=== PATIENT | male | born 1935 | race Caucasian/White ===

== ENCOUNTER 2024-06-03 14:57 | Inpatient (IN) | payer OTHER, BC ==
--- OUTSIDE RECORDS SUMMARY | 2024-06-03 14:59 | XMS REPORT | Clinical Summary ---
Author Name Unknown Organization [facility] Address [address] [place] [address] Care Team Providers Care Roping Machine Tender Name Role Phone Charlene Graham MD Unavailable [phone] Samuel Padron MD Primary Care Provider Marito Dimas MD Unavailable Ramona De eJsus MD Unavailable [phone] Allergies Active Allergy Reactions Criticality Noted Date Comments Sulfa (Sulfonamide Antibiotics) Hives 01/14 Medications Medication Sig Dispensed Refills Start Date End Date Status lovastatin (MEVACOR) 10 mg tablet Take 10 mg by mouth daily. 0 12/18/2018 Active hydroCHLOROthiazide (MICROZIDE) 12.5 mg capsule Take 12.5 mg by mouth daily. 02/20/2004 Active coenzyme Q10 (CO Q-10) 10 mg capsule Take 10 mg by mouth daily. Active docosahexanoic acid/epa (FISH OIL ORAL) Take 1 capsule by mouth twice daily. Active NIACIN ORAL Take 1 tablet by mouth twice daily. Active multivitamin (multivitamin) tablet Take 1 tablet by mouth daily. Active aspirin 81 mg EC tabletIndications:Foll icular thyroid carcinoma Take 1 tablet (81 mg) by mouth daily. 0 06/01/2019 Active calcium carbonate (TUMS ULTRA) 1,000 mg (400 mg elemental calcium per tablet) chewable tabletIndications:Foll icular thyroid carcinoma Chew 1 tablet (1,000 mg) twice daily. 180 tablet 6 05/25/2019 Active Additional Information Patient not taking.Reason: No longer taking, Reported on 06/14/2019 fenofibrate nanocrystallized (TRICOR) 145 mg tablet Take 145 mg by mouth daily. Active levothyroxine (SYNTHROID, LEVOTHROID) 175 mcg tabletIndications:Foll icular thyroid carcinoma Take 1 tablet (175 mcg) by mouth as directed. 1 tablet Friday through Friday and 1.5 tablets on Friday. 96 tablet 3 08/03/2020 Active Active Problems Problem Noted Date Diagnosed Date Long-term drug therapy 03/30/2020 Edema of lower extremity 04/08/2019 Other specified preoperative examination 019 Overview: 03/05/2019: EK, SR. Poss left atrial enlargement 02/05/2019: US HEAD NECK: IMPRESSION: Bilateral thyroid nodules, with BARTOLOME intermediate suspicion / ACR moderate suspicion (TR4) of the right superior thyroid lobe 5.2 cm nodule. 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 Staging:Clinical stage from 03/15/2019:Stage II(ycT3a, cNX, cM0, Age at diagnosis: >= 55 years) - Signed by Bailey Mccormick PA on 03/25/2019 Hypertension 02/10/2019 Overview: BP Readings from Last 3 Encounters: 03/05/19 133/69 02/05/19 129/69 02/05/19 159/79 Hyperlipidemia 02/10/2019 Postoperative hypothyroidism Surgical History Surgery Date Site/Laterality Comments TONSILLECTOMY COLONOSCOPY AR TOTAL THYROID LOBECTOMY U NI W/WO ISTHMUSECTOMY 03/15/2019 Neck/Right Procedure: RIGHT THYROID LOBECTOMY; Surgeon: Samuel Padron MD; Location: MAIN OR; Service: SURG ONC - ENDOCRINE AR THYROIDECTOMY RMVL REMAIN ING TISS FLWG PRTL RMVL 05/24/2019 Neck/Left Procedure: THYROIDECTOMY, REMOVAL OF ALL THYROID TISSUE FOLLOWING PREVIOUS REMOVAL OF A PORTION OF THYROID; Surgeon: Samuel Padron MD; Location: MAIN OR; Service: SURG ONC - ENDOCRINE Medical History Medical History Date Comments Hypertension Hyperlipidemia Loss of sense of smell Arthritis Cancer Disorder of thyroid gland Family History Medical History Relation Name Comments Skin cancer Brother -Colon cancer Mother [place] Walker Relation Name Status Comments Brother Mother Carol Manley Social History Tobacco Use Types Packs/Day Years Used Date Smoking Tobacco: Former Cigarettes Smokeless Tobacco: Never Alcohol Use Standard Drinks/Week Comments Never 0 (1 standard drink = 0.6 oz pur e alcohol) Sex and Gender Information Value Date Recorded Sex Assigned at Male 01/30/2019 3:43 PM CDT Gender Identity Male 01/30/2019 3:43 PM CDT Sexual Orientation Bisexual 01/30/2019 3: 43 PM CDT Sexual Orientation Don't know 01/30/2019 3: 43 PM CDT Sexual Orientation Straight 01/30/2019 3: 43 PM CDT Job Start Date Occupation Industry Not on file Not on file Not on file Obstetrics History Plan of Treatment Health Maintenance Due Date Last Done Comments Pneumococcal Vaccine: 65+ Years (1 of 1 - PCV) 001 COVID-19 Vaccine ( - 2022- season) 2024 Influenza Vaccine (#1) 2024 Advance Directives Documents on File Type Date Recorded Patient Tube Room Cashier Expl anation Advance Directives: Medical Power of Skeet Operator 03/09/2019 Medical Power of Att orney * Full Code (Latest Code Status on File) Date Activated Date Inactivated Comments 05/24/2019 2:31 PM 05/25/2019 4:24 PM * Full Code Date Activated Date Inactivated Comments 03/15/2019 9:13 PM 03/16/2019 2:34 PM * Full Code Date Activated Date Inactivated Comments 03/15/2019 7:19 PM 03/15/2019 9:13 PM Care Teams Roping Machine Tender Relationship Specialty Start Date End Date Charlene Graham MD [address] [place] [address] [phone] [email or web address] PCP - External Referring Otolaryngology 01/18/19 Samuel Padron MD [address] [place] [phone] [email or web address] PCP - General Surgical Oncology 01/18/19 Marito Dimas MD [address] [place] [phone] [email or web address] - External Primary Care Provider Family Practice 02/05/19 Ramona De Jesus MD [address] [place] [address] [phone] [email or web address] Consulting Physician Endocrinology 04/08/19
[2024-06-03] MEDS ORDERED: AZITHROMYCIN 500 MG INJ IVPB ONE (15:47)
[2024-06-03] MEDS ORDERED: CEFTRIAXONE 1000 MG/VIAL ONE (15:47)
[2024-06-03] MEDS ORDERED: NA CHLORIDE 0.9% 250 ML ONE (15:47)
[2024-06-03 16:35] LABS: Absolute Eosinophils 0.1 K/uL (0-0.5); Absolute Lymphocytes (CBC) 1.4 K/uL (0.7-4.9); Absolute Monocytes 0.4 K/uL (0.1-1.3); Basophils % 0.3 % (0-1.3); Eosinophils % 0.7 % (0-4.4); Hematocrit 34.9 % (39.6-49.0); Hemoglobin 11.8 g/dL (13.6-17.9); Lymphocytes % 15.3 % (15.3-44.8); MCH 31.5 pg (27.0-35.0); MCHC 33.7 g/dL (32.0-36.0); MCV 93.7 fL (80-100); MPV 9.1 fL (7.6-11.3); Monocytes % 4.7 % (3.3-12.3); Nucleated Red Blood Cells % 0.1 % (0-0); Platelets 283 thou/uL (152-406); RBC Red Blood Cell Count 3.73 M/uL (4.33-5.43); Red Cell Distribution Width 14.6 % (12.1-15.2)
[2024-06-03 16:37] LABS: SARS-CoV-2 Antigen CONTROL BLUE LINE VIS/BG OK; SARS-CoV-2 Antigen Rapid Res Negative (Negative)
[2024-06-03 16:41] LABS: PT Prothrombin Time 12.7 SECONDS (9.4-12.5); PTT, Activated Partial Thromb 30.7 SECONDS (24.3-36.9); Protime INR 1.14
--- NOTE | 2024-06-03 16:55 | RAD REPORT ---
Procedure: Chest Single View History: Cough Comparison: February 2024 Multiple, bilateral large pulmonary nodules again demonstrated. Right apex has become more hazy. Most of the nodules vary in size from a few centimeters to 6 cm. No significant pleural effusion noted. The heart is normal size. 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
[2024-06-03 17:01] LABS: Albumin 3.3 g/dL (3.4-5.0); Albumin/Globulin Ratio 0.8 (1.1-1.8); Anion Gap 5.9 mEq/L (5.0-15.0); Bilirubin Total 0.4 mg/dL (0.2-1.0); Globulin 4.1 g/dL (2.3-3.5); Potassium 2.9 mEq/L (3.5-5.1); Protein, Total 7.4 g/dL (6.4-8.2)
--- NOTE | 2024-06-03 17:01 | EDPHYS ---
Physician Documentation [facility] Name: Leno Manley Age: 88 yrs Sex: Male : 1935 Arrival Date: 06/03/2024 Time: 14:57 Bed 3 Private MD: ED Physician Yaakov Lugo HPI: 06/03 16:02 This 88 yrs old Male presents to ER via Ambulatory with complaints of Cough. ec2 16:02 Patient with history of lung cancer arrives today for cough and shortness of breath. ec2 Patient reports that he has chronic shortness of breath however is having worsening shortness of breath as well as cough and productive sputum ongoing for the past week. No vomiting, no diarrhea.. Historical: - Allergies: 15:43 No Known Allergies; tl4 - PMHx: 15:43 Lung cancer; tl4 - Immunization history:: Adult Immunizations unknown. - Infectious Disease History:: Denies. - Social history:: Smoking status: Patient denies any tobacco usage or history of. ROS: 16:02 Constitutional: as per hpi ec2 Exam: 16:02 Constitutional: GEN: NAD Head: atraumatic Eyes: EOMI Ears: External ears are ec2 normal. CV: regular rate LUNGS: no respiratory distress, rales in the left lower lung field ABD: non-distended SKIN: no evidence of rashes MSK: no evidence of trauma Vital Signs: 15:39 BP 151 / 73; Pulse 93; Resp 24; Temp 98.2; Pulse Ox 85% on R/A; Weight 76.2 kg; Height tl4 6 ft. 2 in. ; 16:24 BP 157 / 81; Pulse 82; Resp 18; Pulse Ox 97% on 2 lpm NC; ko1 16:30 BP 171 / 85; Pulse 86; Resp 15; Pulse Ox 97% on R/A; ko1 19:20 BP 197 / 96; Pulse 98; Resp 18; Pulse Ox 98% on R/A; br2 15:39 Body Mass Index 21.57 (76.20 kg, 187.96 cm) tl4 MDM: 15:47 Patient medically screened. ec2 16:02 Data reviewed: vital signs. ED course: Patient arrives today for cough and cold ec2 symptoms along with worsening shortness of breath. Patient noted to be hypoxic with saturations in the mid 80s and subsequently placed on oxygen. Will obtain a septic workup and empirically treat with antibiotics. Differential includes pneumonia, pleural effusion, volume overload. . 16:15 ED course: EKG independently reviewed and interpreted by me, shows normal sinus rhythm, ec2 rate of 84, no acute ST segment elevations, intervals nonconcerning, motion artifact noted. . 16:59 ED course: CBC is reassuring. Chest x-ray showed bilateral pulmonary nodules consistent ec2 with patient's known cancer. Flu and COVID testing negative. Will admit the patient for sepsis, shortness of breath. . 06/03 15:42 Order name: Blood Culture Adult (2) ec2 06/03 15:42 Order name: CBC with Diff; Complete Time: 16:59 ec2 06/03 15:42 Order name: CMP; Complete Time: 17:06 ec2 06/03 15:42 Order name: Lactate w/ 2H reflex if indic.; Complete Time: 17:06 ec2 06/03 15:42 Order name: Protime (+inr); Complete Time: 16:59 ec2 06/03 15:42 Order name: Ptt, Activated; Complete Time: 16:59 ec2 06/03 15:42 Order name: Influenza Screen (a \T\ B); Complete Time: 16:59 ec2 06/03 15:42 Order name: SARS RAPID; Complete Time: 16:59 ec2 06/03 17:22 Order name: CBC with Automated Diff EDNV 06/03 17:22 Order name: CBC with Automated Diff EDNV 06/03 17:22 Order name: Comprehensive Metabolic Panel EDNV 06/03 17:22 Order name: Comprehensive Metabolic Panel EDNV 06/03 17:22 Order name: Lactate w/ 2H reflex if indic. EDMS 06/03 17:22 Order name: Lactate w/ 2H reflex if indic. EDMS 06/03 17:22 Order name: Lipid Profile EDNV 06/03 17:22 Order name: Lipid Profile EDNV 06/03 17:22 Order name: Magnesium EDNV 06/03 17:22 Order name: Magnesium EDNV 06/03 17:22 Order name: NT PRO-BNP EDNV 06/03 17:22 Order name: NT PRO-BNP EDNV 06/03 17:22 Order name: Protime (+INR) EDNV 06/03 17:22 Order name: Protime (+INR) EDMS 06/03 17:22 Order name: PTT, Activated Partial Thromb EDMS 06/03 17:22 Order name: PTT, Activated Partial Thromb EDMS 06/03 17:22 Order name: Troponin High Sensitivity EDMS 06/03 17:22 Order name: Troponin High Sensitivity EDMS 06/03 17:22 Order name: Troponin High Sensitivity EDMS 06/03 17:22 Order name: Troponin High Sensitivity EDMS 06/03 17:24 Order name: PTH Intact EDMS 06/03 17:24 Order name: PTH Intact EDMS 06/03 17:24 Order name: PTH-Related Protein EDMS 06/03 17:24 Order name: PTH-Related Protein EDMS 06/03 17:24 Order name: Vitamin D, 25 (OH), TOTAL EDMS 06/03 17:24 Order name: Vitamin D, 25 (OH), TOTAL EDMS 06/03 17:24 Order name: Vitamin D,1,25 Dihydroxy EDMS 06/03 17:24 Order name: Vitamin D,1,25 Dihydroxy EDNV 06/03 17:30 Order name: Ionized Calcium EDMS 06/03 17:30 Order name: Ionized Calcium EDNV 06/03 19:04 Order name: Ghost Lactate-NO COLLECT Timer EDNV 06/03 15:42 Order name: Chest Single View XRAY; Complete Time: 16:59 ec2 06/03 17:30 Order name: Head Brain Wo Cont EDNV 06/03 17:22 Order name: CONS Physician Consult EDNV 06/03 17:22 Order name: Physical Therapy Consult EDNV 06/03 15:42 Order name: Accucheck; Complete Time: 16:22 ec2 06/03 15:42 Order name: Cardiac monitoring; Complete Time: 15:50 ec2 06/03 15:42 Order name: EKG - Nurse/Tech; Complete Time: 16:21 ec2 06/03 15:42 Order name: IV Saline Lock - Large Bore; Complete Time: 16:21 ec2 06/03 15:42 Order name: Labs collected and sent; Complete Time: 16:22 ec2 06/03 15:42 Order name: O2 Per Protocol; Complete Time: 15:50 ec2 06/03 15:42 Order name: O2 Sat Monitoring; Complete Time: 15:50 ec2 06/03 15:42 Order name: Vital Signs; Complete Time: 15:50 ec2 Administered Medications: 16:21 Drug: Rocephin IV 1 grams IV at calculated rate once; Given slow IV push per pharmacy ko1 instructions Route: IV; Rate: calculated rate; Site: right forearm; 17:00 Follow up: IV Status: Completed infusion; IV Intake: 10ml ko1 16:22 Drug: AZITHromycin IVPB 500 mg IVPB once over 1 hrs; (mix in 250 mL NS) Route: IVPB; ko1 Infused Over: 1 hrs; Site: right forearm; 17:10 Follow up: IV Status: Completed infusion; IV Intake: 250ml ko1 17:41 Drug: NS 0.9% IV (30 ml/kg) 30 ml/kg IV at bolus once; Sepsis Protocol Route: IV; Rate: ko1 bolus; Site: right wrist; 18:28 Follow up: Response: No adverse reaction; IV Status: Infusion continued upon admission ko1 Disposition Summary: 06/03/24 17:00 Hospitalization Ordered Notes: Hospitalization Status: Inpatient Admission ec2 Provider: Moe Patterson ec2 Condition: Stable ec2 Problem: new ec2 Symptoms: have improved ec2 Bed/Room Type: Standard ec2 Location: Intensive Care Unit(06/03/24 17:29) bd Room Assignment: 1-(06/03/24 17:29) bd Diagnosis - Sepsis, unspecified organism ec2 Forms: - Medication Reconciliation Form ec2 - SBAR form ec2 - Leadership Thank You Letter ec2 Critical care time excluding procedures: 16:59 Critical care time: Bedside Care: 30 minutes, Consultation: 5 minutes. Total time: 35 ec2 minutes Signatures: Dispatcher [employer] EDSilva Acharya Kathy, RN RN ko1 Yaakov Lugo MD MD ec2 LogdaWilfredo johnson RN RN tl4 Corrections: (The following items were deleted from the chart) 15:43 15:43 BLOOD CULTURE*+BA.LAB.BRZ ordered. EDMS EDMS 15:43 15:43 CBC+H.LAB.BRZ ordered. EDMS EDMS 15:43 15:43 COMPREHENSIVE METABOLIC PANEL+C.LAB.BRZ ordered. EDMS EDMS 15:43 15:43 LACTATE+C.LAB.BRZ ordered. EDMS EDMS 15:43 15:43 PROTIME (+INR)+COAG.LAB.BRZ ordered. EDMS EDMS 15:43 15:43 PTT, ACTIVATED+COAG.LAB.BRZ ordered. EDMS EDMS 15:43 15:43 Influenza Screen (A \T\ B)+BA.LAB.BRZ ordered. EDMS EDMS 15:43 15:43 SARS-COV-2 Antigen Rapid+I.LAB.BRZ ordered. EDMS EDMS 15:43 15:43 Chest Single View+RAD.RAD.BRZ ordered. EDMS EDMS 17:29 17:00 Telemetry/MedSurg (Inpatient) ec2 bd 17:29 17:00 ec2 bd
--- NOTE | 2024-06-03 17:01 | ER ---
Nurse's Notes [facility] Name: Leno Manley Age: 88 yrs Sex: Male : 1935 Arrival Date: 06/03/2024 Time: 14:57 Bed 3 Private MD: Diagnosis: Sepsis, unspecified organism Presentation: 06/03 15:39 Chief complaint: Spouse and/or significant other states: Pt has history of lung cancer. tl4 Pt c/o chest congestion and productive cough for unknown period of time. Pt denies CP. Coronavirus screen: congestion, cough unrelated to allergies. Ebola Screen: No symptoms or risks identified at this time. Initial Sepsis Screen: Does the patient meet any 2 criteria? No. Patient's initial sepsis screen is negative. Does the patient have a suspected source of infection? No. Patient's initial sepsis screen is negative. Risk Assessment: Do you want to hurt yourself or someone else? Patient reports no desire to harm self or others. Onset of symptoms is unknown. 15:39 Method Of Arrival: Ambulatory tl4 15:39 Acuity: SUSHMA 2 tl4 Triage Assessment: 15:41 General: Appears distressed, Behavior is calm, cooperative. Pain: Denies pain. EENT: No tl4 signs and/or symptoms were reported regarding the EENT system. Neuro: Level of Consciousness is awake, alert, obeys commands, Oriented to person, place, time, situation. Cardiovascular: Capillary refill < 3 seconds Patient's skin is warm and dry. Respiratory: Airway is patent Respiratory effort is labored, Respiratory pattern is regular. Respiratory: Reports cough that is productive. GI: No signs and/or symptoms were reported involving the gastrointestinal system. : No signs and/or symptoms were reported regarding the genitourinary system. Derm: No signs and/or symptoms reported regarding the dermatologic system. Musculoskeletal: No deficits noted. Historical: - Allergies: 15:43 No Known Allergies; tl4 - PMHx: 15:43 Lung cancer; tl4 - Immunization history:: Adult Immunizations unknown. - Infectious Disease History:: Denies. - Social history:: Smoking status: Patient denies any tobacco usage or history of. Screenin:24 [facility] ED Fall Risk Assessment (Adult) History of falling in the last 3 months, ko1 including since admission No falls in past 3 months (0 pts) Confusion or Disorientation No (0 pts) Intoxicated or Sedated No (0 pts) Impaired Gait Yes (1 pt) Mobility Assist Device Used Yes (1 pt) Altered Elimination No (0 pt) Score/Fall Risk Level 0 - 2 = Low Risk Oriented to surroundings, Maintained a safe environment, Educated pt \T\ family on fall prevention, incl call for assistance when getting out of bed, Assessed \T\ reinforced patient's understanding of fall precautions, Hourly rounding (assess needs \T\ fall precautionary measures) done. Abuse screen: Denies threats or abuse. Denies injuries from another. Nutritional screening: No deficits noted. Tuberculosis screening: No symptoms or risk factors identified. Assessment: 16:30 General: Appears in no apparent distress. ill, Behavior is calm. Pain: Denies pain. ko1 Neuro: Oriented to person, place. Cardiovascular: No deficits noted. Respiratory: Reports shortness of breath cough that is productive. GI: No deficits noted. : No deficits noted. EENT: No deficits noted. Derm: No deficits noted. Musculoskeletal: No deficits noted. Vital Signs: 15:39 BP 151 / 73; Pulse 93; Resp 24; Temp 98.2; Pulse Ox 85% on R/A; Weight 76.2 kg; Height tl4 6 ft. 2 in. ; 16:24 BP 157 / 81; Pulse 82; Resp 18; Pulse Ox 97% on 2 lpm NC; ko1 16:30 BP 171 / 85; Pulse 86; Resp 15; Pulse Ox 97% on R/A; ko1 19:20 BP 197 / 96; Pulse 98; Resp 18; Pulse Ox 98% on R/A; br2 15:39 Body Mass Index 21.57 (76.20 kg, 187.96 cm) tl4 ED Course: 15:00 Patient arrived in ED. mg5 15:02 Yaakov Lugo MD is Attending Physician. ec2 15:41 Triage completed. tl4 15:43 Arm band placed on left wrist. tl4 15:47 Oxygen administration via nasal cannula \T\ 4L/min Response to oxygen therapy: symptoms tl4 remain unchanged. 16:06 SARS RAPID Sent. ko1 16:06 Influenza Screen (a \T\ B) Sent. ko1 16:22 Placed in gown. Bed in low position. Call light in reach. Side rails up X 1. Provided le Education on: press call light if needing anything. Client placed on continuous cardiac and pulse oximetry monitoring. NIBP monitoring applied. electronic plotting system operator on. 16:22 Blood Culture Adult (2) Sent. ko1 16: CBC with Diff Sent. ko1 16: CMP Sent. ko1 16: Lactate w/ 2H reflex if indic. Sent. ko1 16: Protime (+inr) Sent. ko1 16: Ptt, Activated Sent. ko1 16: Initial lab(s) drawn, by me, sent to lab. EKG done, by ED staff, reviewed by Yaakov Lugo MD. Inserted saline lock: 22 gauge in right forearm, using aseptic technique. Blood collected. Flushed with 10 mL NS. 16:23 Genie Gr, RN is Primary Nurse. ko1 16:30 Door closed. Noise minimized. Lights dimmed. Warm blanket given. Pillow given. ko1 16:30 No provider procedures requiring assistance completed. Patient admitted, IV remains in ko1 place. 16:46 Chest Single View XRAY In Process Unspecified. EDMS 17:00 Moe Patterson MD is Hospitalizing Provider. ec2 19:03 Primary Nurse role handed off by Genie Gr, RN ko1 Administered Medications: 16:21 Drug: Rocephin IV 1 grams IV at calculated rate once; Given slow IV push per pharmacy ko1 instructions Route: IV; Rate: calculated rate; Site: right forearm; 17:00 Follow up: IV Status: Completed infusion; IV Intake: 10ml ko1 16:22 Drug: AZITHromycin IVPB 500 mg IVPB once over 1 hrs; (mix in 250 mL NS) Route: IVPB; ko1 Infused Over: 1 hrs; Site: right forearm; 17:10 Follow up: IV Status: Completed infusion; IV Intake: 250ml ko1 17:41 Drug: NS 0.9% IV (30 ml/kg) 30 ml/kg IV at bolus once; Sepsis Protocol Route: IV; Rate: ko1 bolus; Site: right wrist; 18:28 Follow up: Response: No adverse reaction; IV Status: Infusion continued upon admission ko1 Medication: 16:24 VIS not applicable for this client. ko1 Intake: 17:00 IV: 10ml; Total: 10ml. ko1 17:10 IV: 250ml; Total: 260ml. ko1 Outcome: 17:00 Decision to Hospitalize by Provider. ec2 18:26 Admitted to ICU ko1 18:26 Condition: stable 18:26 Instructed on the need for admit, 19:21 Patient left the ED. br2 Signatures: Dispatcher [employer] Genie Kirby, RN RN ko1 Amina Culp RN RN mb9 Savita Ernandez 5 Yaakov Lugo MD MD ec2 Wilfredo Boyd RN RN tl4 Kyara Montiel RN RN br2
[2024-06-03] MEDS ORDERED: ACETAMINOPHEN 500 MG TAB PO PRN (17:17)
[2024-06-03] MEDS ORDERED: IPRATROPIUM BROM 0.5MG/2.5ML NEB PRN (17:17)
[2024-06-03] MEDS ORDERED: ALBUTEROL 2.5 MG/3 ML NEB SOL NEB PRN (17:17)
[2024-06-03] MEDS ORDERED: ONDANSETRON 4 MG/2 ML VIAL IV PRN (17:17)
[2024-06-03] MEDS: PAMIDRONATE DISODIUM IV ONE (17:34)
[2024-06-03] MEDS ORDERED: NA CHLORIDE 0.9% 1,000 ML IV SCH (18:00)
[2024-06-03] MEDS: NA CHLORIDE 0.9% 1,000 ML IV SCH (18:00)
[2024-06-03] MEDS: DEXMEDETOMIDINE HCL 200 MCG in NA CHLORIDE 0.9% 98 ML IV SCH (20:08)
[2024-06-03] MEDS: PAMIDRONATE 90 MG in NA CHLORIDE 0.9% 500 ML IV ONE (20:15)
[2024-06-03] MEDS: FUROSEMIDE 100 MG in NA CHLORIDE 0.9% 90 ML IV SCH (20:26)
[2024-06-03] MEDS: dexAMETHasone 4 MG/ML VIAL IV SCH (20:40)
[2024-06-03] MEDS: ENOXAPARIN 40 MG/0.4 ML SQ SCH (20:40)
--- NOTE | 2024-06-03 20:55 | RAD REPORT ---
EXAM: CT brain without contrast HISTORY: Alteration of consciousness. Confusion COMPARISON: None TECHNIQUE: Multiple contiguous axial images were obtained and a CT of the brain without contrast. Sagittal and coronal reformats were performed. Automated exposure control, adjustment of the mA and/or kV according to patient size, and/or itera tive reconstruction. Unless otherwise specified, incidental findings do not require dedicated imaging follow-u FINDINGS: An intracranial bleed is not seen Ventricles are normal caliber No extra-axial fluid collection noted Mild to moderate density deep white matter probably ischemic bilaterally changes secondary to small v essel disease. No fluid within the visualized sinuses or mastoids noted. IMPRESSION: No acute intracranial abnormality noted. If the patient's symptoms persist MRI of the brain would be recommended.
[2024-06-03] MEDS: levETIRAcetam 500 MG in NA CHLORIDE 0.9% 100 ML IV SCH (21:29)
[2024-06-03] MEDS: Levofloxacin 750mg IV 750 MG/150 ML BAG IV SCH (21:39)
[2024-06-03] MEDS: POTASSIUM CL SA 10 MEQ TAB PO ONE (21:59)
[2024-06-03] MEDS: KCL 20 MEQ/100 mL IVPB 20 MEQ/100 ML BAG IV SCH (22:17)
[2024-06-03 22:38] VITALS: BMI 20.9
--- NOTE | 2024-06-03 23:36 | P.HP ---
Certification for Inpatient Patient admitted to: Inpatient With expected LOS: >2 Midnights Patient will require the following post-hospital care: None Practitioner: I am a practitioner with admitting privileges, knowledge of patient current condition, hospital course, and medical plan of care. Services: Services provided to patient in accordance with Admission requirements found in Title 42 Section 412.3 of the Code of Federal Regulations Patient History Date of Service: 06/03/24 Reason for admission: Altered mental status; metastatic lung cancer; weakness History of Present Illness: Patient is a 88-year-old gentleman came to the hospital with altered mentation. Patient has gotten really weak and confused. According to the , patient started going downhill a few years ago when he was diagnosed with thyroid cancer. Patient had done well until he became ill earlier this year. His calcium level was significantly elevated. Patient had workup done which revealed metastatic lung cancer. 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 Patient has been following up with local oncologist and is pending further or workup prior to treatment plan. At this time, patient's prognosis is poor. Patient appears to be very debilitated. He is very confused and will try to get his calcium level down with fluids and diuretics. Will also start him on pamidronate. Repeat calcium level in AM. CT scan of the brain pending as well. Allergies Sulfa (Sulfonamide Antibiotics) Allergy (Verified 06/03/24 19:53) Unknown - Past Medical/Surgical History Has patient received pneumonia vaccine in the past: Yes Diabetic: No -: lung cancer -: Hypertension -: History of thyroid cancer -: Thyroid biopsy - Family History Father Family History: Reviewed- Non-Contributory - Social History Smoking Status: Never smoker Alcohol use: No CD- Drugs: No Caffeine use: Yes Place of Residence: Home Review of Systems 10-point ROS is otherwise unremarkable Physical Examination - Vital Signs Temperature: 98.4 F Blood Pressure: 150/80 Pulse: 73 Respirations: 32 Pulse Ox (%): 94 - Physical Exam General: Alert, In no apparent distress, Oriented x1, Confused HEENT: Atraumatic, PERRLA, Mucous membr. moist/pink, EOMI, Sclerae nonicteric Neck: Supple, 2+ carotid pulse no bruit, No LAD, Without JVD or thyroid abnormality Respiratory: Diminished Cardiovascular: Regular rate/rhythm, Normal S1 S2, No murmurs Gastrointestinal: Normal bowel sounds, Soft and benign, Non-distended, No tenderness Musculoskeletal: No clubbing, No swelling, No tenderness Integumentary: No rashes Neurological: Normal speech, Normal tone, Sensation intact, Cranial nerves 3-12 intact, Normal affect, Abnormal gait, Abnormal strength Lymphatics: No axilla or inguinal lymphadenopathy - Studies Laboratory Data (last 24 hrs) 06/03/24 06/03/24 06/03/24 16:15 16:15 16:15 WBC 8.80 Hgb 11.8 L Hct 34.9 L Plt Count 283 PT 12.7 H INR 1.14 APTT 30.7 Sodium 141 Potassium 2.9 L BUN 45 H Creatinine 1.84 H Glucose 135 H Total Bilirubin 0.4 AST 12 L ALT 18 Alkaline Phosphatase 54 Microbiology Data (last 24 hrs): 06/03/24 15:55 Nasopharnyx Influenza Type A Antigen Screen - Final 06/03/24 15:55 Nasopharnyx Influenza Type B Antigen Screen - Final Assessment & Plan - Problems (Diagnosis) (1) Altered mental status Current Visit: Yes Status: Acute (2) Hypercalcemia Current Visit: Yes Status: Acute (3) Metastatic lung cancer (metastasis from lung to other site) Current Visit: Yes Status: Acute (4) History of thyroid cancer Current Visit: Yes Status: Acute - Plan 1. Gentle hydration 2. Panculture 3. IV antibiotics 4. Imaging studies including CT of the brain. MRI if no abnormality 5. Monitor electrolytes; correct calcium; started on pamidronate along with IV fluids with Lasix drip 6. Check thyroid studies as well as cortisol level; check intact PTH along with PTHrP and vitamin D levels 7. Review medications 8. Neurochecks every 4 hours 9. GI DVT prophylaxis Discharge Plan: Home Plan to discharge in: Greater than 2 days - Advance Directives Does patient have a Living Will: No Does patient have a Durable POA for Healthcare: No - Code Status/Comfort Care Code Status Assessed: Yes Code Status: Full Code Critical Care: Yes Time Spent Managing PTS Care (In Minutes): 50
[2024-06-04 06:39] LABS: Absolute Monocytes 0.3 K/uL (0.1-1.3); Absolute Neutrophil 5.6 K/uL (1.8-8.0); Basophils % 0.2 % (0-1.3); Eosinophils % 0.1 % (0-4.4); Hematocrit 30.8 % (39.6-49.0); Hemoglobin 10.6 g/dL (13.6-17.9); Lymphocytes % 14.6 % (15.3-44.8); MCHC 34.5 g/dL (32.0-36.0); MCV 92.8 fL (80-100); MPV 8.9 fL (7.6-11.3); Monocytes % 4.4 % (3.3-12.3); Neutrophils % 80.7 % (41.7-73.7); Nucleated Red Blood Cells % 0.1 % (0-0); Platelets 242 thou/uL (152-406); RBC Red Blood Cell Count 3.32 M/uL (4.33-5.43); Red Cell Distribution Width 14.2 % (12.1-15.2)
[2024-06-04 06:43] LABS: PT Prothrombin Time 14.1 SECONDS (9.4-12.5); PTT, Activated Partial Thromb 30.3 SECONDS (24.3-36.9); Protime INR 1.27
[2024-06-04 06:52] LABS: ALT/SGPT 16 U/L (16-61); Albumin 2.8 g/dL (3.4-5.0); Albumin/Globulin Ratio 0.7 (1.1-1.8); Alkaline Phosphatase 34 U/L (45-117); BUN Blood Urea Nitrogen 37 mg/dL (7-18); Bicarbonate 31 mEq/L (21-32); Bilirubin Total 0.4 mg/dL (0.2-1.0); Globulin 3.8 g/dL (2.3-3.5); Glomerular Filtration Rate 47 ml/min (=/>90); Glucose Level 137 mg/dL (74-106); HDL Cholesterol 54 mg/dL (40-60); LDL Cholesterol, Calculated 56 mg/dL (<130); LDL Cholesterol,Calc NonReport 56; Magnesium 1.9 mg/dL (1.6-2.4); NT PRO-BNP 2452 pg/mL (<450); Protein, Total 6.6 g/dL (6.4-8.2); Sodium Level 145 mEq/L (136-145); Troponin High Sensitivity 53.4 pg/mL (<58.9)
[2024-06-04 06:58] LABS: AST/SGOT < 10 U/L (15-37)
[2024-06-04] MEDS: DEXMEDETOMIDINE HCL 1,000 MCG in NA CHLORIDE 0.9% 490 ML IV SCH (07:15)
[2024-06-04] MEDS: LEVOTHYROXINE SODIUM 100 MCG VIAL IV SCH (09:54)
--- NOTE | 2024-06-04 10:48 | P.CNS ---
Date of Consult: 06/04/24 Chief Complaint: Altered mental status; metastatic lung cancer; weakness History of Present Illness: Patient is 88 years of age admitted with altered mental status is became weak confused he was diagnosed with thyroid cancer he does not recall that he has a diagnosis of cancer does not really know where he is is not oriented to day or time came in with hypercalcemia metastatic lung cancer he was seen by a local oncologist Allergies Sulfa (Sulfonamide Antibiotics) Allergy (Verified 06/03/24 19:53) Unknown - Past Medical/Surgical History Diabetic: No -: lung cancer -: Hypertension -: History of thyroid cancer -: Thyroid biopsy - Family History Father Family History: Reviewed- Non-Contributory - Social History Alcohol use: No CD- Drugs: No Caffeine use: Yes Place of Residence: Home Review of Systems Unremarkable General: Weakness Respiratory: Shortness of Breath Physical Examination Temp Pulse Resp BP Pulse Ox 97.9 F 62 26 H 142/65 H 99 06/04/24 08:00 06/04/24 10:00 06/04/24 10:00 06/04/24 10:00 06/04/24 10:00 General: Alert, Cooperative, Delirious Neck: Supple Respiratory: Clear to auscultation bilaterally Cardiovascular: No edema, Regular rate/rhythm, Normal S1 S2 Gastrointestinal: Normal bowel sounds, Soft and benign Laboratory Data (last 24 hrs) 06/03/24 06/03/24 06/03/24 16:15 16:15 16:15 WBC 8.80 Hgb 11.8 L Hct 34.9 L Plt Count 283 PT 12.7 H INR 1.14 APTT 30.7 Sodium 141 Potassium 2.9 L BUN 45 H Creatinine 1.84 H Glucose 135 H Total Bilirubin 0.4 AST 12 L ALT 18 Alkaline Phosphatase 54 - Problems (1) Metastatic lung cancer (metastasis from lung to other site) Current Visit: Yes Status: Acute Plan: Patient is 88 years of age admitted with altered mental status he has hypercalcemia hypokalemia mild anemia renal failure calcium is 11.7 BNP is 2452 chest x-ray shows diffuse metastatic lung disease agree with IV fluids Lasix as needed prognosis poor scheduled for an MRI vital signs stable oxygenation satisfactory Qualifiers: Laterality: unspecified laterality Qualified Code(s): C34.90 - Malignant neoplasm of unspecified part of unspecified bronchus or lung
--- NOTE | 2024-06-04 15:05 | RAD REPORT ---
EXAMINATION: MRI BRAIN WITHOUT AND WITH CONTRAST CLINICAL INDICATION: Male, 88 years old. brain mets [facility] MAIN N brain mets TECHNIQUE: Multiplanar multisequence MR images of the brain were obtained without and with intravenou s contrast. Unless otherwise specified, incidental findings do not require dedicated imaging follow-up. COMPARISON: 06/03/2024 CT head FINDINGS: INTRACRANIAL: Diffusion-weighted images show no acute or early subacute infarction. No abnormal brain parenchymal signal. The ventricles are normal in size and morphology. No augmented susceptibility. There is no midline shift. No abnormal extraaxial fluid collection. Confluent areas of T2 and FLAIR h yperintensities in the periventricular region likely chronic microvascular ischemic changes. VASCULATURE: Normal signal voids in the larger intracranial arteries and dural venous sinuses. SINUSES: The paranasal sinuses and mastoid air cells are predominantly clear. BONE: The marrow signal pattern is within normal limits. OTHER FINDINGS: Postcontrast imaging demonstrates an enhancing dural based mass along the left anteri or falx abutting the medardo dao anteriorly measuring 27 x 12 mm. This probably represents a meningioma. Small developmental venous anomaly noted left anterior frontal lobe. IMPRESSION: Homogeneously enhancing anterior parafalcine mass is present on the left this abuts the medardo dao. 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 There is no finding convincing for intracranial metastatic disease seen.
[2024-06-04] MEDS: FUROSEMIDE 20 MG/ 2ML VIAL IV SCH (15:34)
--- NOTE | 2024-06-04 15:41 | EKG ---
Test Date: 2024-06-03 Test Time: 16:12:24 Cardiac Cath Rn: YURI MEASUREMENT RESULTS: Intervals: Rate: 84 AL: 144 QRSD: 98 QT: 370 QTc: 437 [place]: P: 74 AL: 144 QRS: 59 T: 63 INTERPRETIVE STATEMENTS: Normal sinus rhythm Nonspecific ST abnormality Abnormal ECG No previous ECG available for comparison Electronically Signed On 06-04-24 15:38:34 CDT by Roberto Hodgson
[2024-06-04] MEDS: cloNIDine HCL 0.1 MG TAB PO ONE (17:47)
[2024-06-04] MEDS: METOPROLOL TARTRATE 5 MG/5 ML INJ IV STA (17:47)
[2024-06-04] MEDS: METOPROLOL TAR 50 MG TAB PO SCH (18:46)
[2024-06-04] MEDS: LOSARTAN POTASSIUM 50 MG TABLET PO SCH (21:12)
[2024-06-04] MEDS: QUETIAPINE 25 MG TAB PO ONE (21:12)
[2024-06-04] MEDS: LORazepam 2 MG/ML VIAL IV ONE (22:50)
[2024-06-05] MEDS: HALOPERIDOL LACT 5 MG/ML INJ IV PRN (02:20)
[2024-06-05] MEDS: LORazepam 2 MG/ML VIAL IV ONE (04:12)
--- NOTE | 2024-06-05 06:59 | P.PN ---
Date of Service: 06/04/24 subjective Presented with confusion cough, cough, shortness of breath, history of metastatic lung CA, Aspiration precaution Review of Systems 10-point ROS is otherwise unremarkable Physical Examination - Vital Signs Reviewed - Physical Exam General: Alert, In no apparent distress, Oriented x1, Confused HEENT: Atraumatic, PERRLA, Mucous membr. moist/pink, EOMI, Sclerae nonicteric Neck: Supple, 2+ carotid pulse no bruit, No LAD, Without JVD or thyroid abnormality Respiratory: Diminished Cardiovascular: Regular rate/rhythm, Normal S1 S2, No murmurs Gastrointestinal: Normal bowel sounds, Soft and benign, Non-distended, No tenderness Musculoskeletal: No clubbing, No swelling, No tenderness Integumentary: No rashes Neurological: Confused, no focal deficit, abnormal gait, Abnormal strength Lymphatics: No axilla or inguinal lymphadenopathy Assessment & Plan - Problems (Diagnosis) Acute metabolic encephalopathy secondary to severe sepsis Current Visit: Yes Status: Acute Acute hypercalcemia Current Visit: Yes Status: Acute thyroid cancer, metastatic lung cancer (metastasis from lung to other site) Current Visit: Yes Status: Acute Multiple bilateral large pulmonary nodules Current Visit: Yes Status: Acute - Plan 1. Thickened liquids, aspiration risk 2. Panculture 3. IV antibiotics, gentle IV fluids, 4. Imaging studies including CT of the brain. MRI if no abnormality 5. Monitor electrolytes; correct calcium; started on pamidronate along with IV fluids with Lasix drip 6. Check thyroid studies as well as cortisol level; check intact PTH along with PTHrP and vitamin D levels 7. Review medications 8. Neurochecks every 4 hours 9. GI DVT prophylaxis Discharge Plan: Home Plan to discharge in: Greater than 2 days - Advance Directives Does patient have a Living Will: No Does patient have a Durable POA for Healthcare: No - Code Status/Comfort Care Code Status Assessed: Yes Code Status: Full Code Critical Care: Yes Time Spent Managing PTS Care (In Minutes): 35 <Lola Nichols - Last Filed: 06/05/24 16:39> Patient was seen and examined. Events of the last 24 hours have been noted. Spoke with with [facility] regarding patient's clinical picture after evaluating and examining the patient independently. I performed a substantial part of the MDM during this patient's care today. I personally made or approved the documented management plan and acknowledge its risk of complications. I agree with the findings and documentation provided in the [facility]'s notes. Correct electrolytes; malignancy work-up. PT eval. <Moe Patterson - Last Filed: 06/20/24 21:25>
--- NOTE | 2024-06-05 07:07 | P.PN ---
Date of Service: 06/05/24 subjective Pured diet, aspiration precaution, head elevated with meals, Review of Systems 10-point ROS is otherwise unremarkable Physical Examination - Vital Signs Reviewed - Physical Exam General: Alert, In no apparent distress, Oriented x1, Confused HEENT: Atraumatic, PERRLA, Mucous membr. moist/pink, EOMI, Sclerae nonicteric Neck: Supple, 2+ carotid pulse no bruit, No LAD, Without JVD or thyroid abnormality Respiratory: Diminished, unlabored Cardiovascular: Regular rate/rhythm, Normal S1 S2, No murmurs Gastrointestinal: Normal bowel sounds, Soft and benign, Non-distended, No tenderness Musculoskeletal: No clubbing, No swelling, No tenderness Integumentary: No rashes Neurological: Confused, no focal deficit, abnormal gait, Abnormal strength Lymphatics: No axilla or inguinal lymphadenopathy Assessment & Plan - Problems (Diagnosis) Acute metabolic encephalopathy secondary to severe sepsis Current Visit: Yes Status: Acute Acute hypercalcemia Current Visit: Yes Status: Acute thyroid cancer, metastatic lung cancer (metastasis from lung to other site) Current Visit: Yes Status: Acute Multiple bilateral large pulmonary nodules Current Visit: Yes Status: Acute hypertensive urgency Current Visit: Yes Status: Acute - Plan 1. Thickened liquids, aspiration precaution 2. Panculture 3. IV antibiotics, gentle IV fluids, 4. Imaging studies including CT of the brain. MRI if no abnormality 5. Monitor electrolytes; correct calcium; started on pamidronate along with IV fluids with Lasix drip 6. Check thyroid studies as well as cortisol level; check intact PTH along with PTHrP and vitamin D levels 7. Review medications 8. Neurochecks every 4 hours 9. GI DVT prophylaxis 10. As needed antihypertensive, telemetry Discharge Plan: Home Plan to discharge in: Greater than 2 days - Advance Directives Does patient have a Living Will: No Does patient have a Durable POA for Healthcare: No - Code Status/Comfort Care Code Status Assessed: Yes Code Status: Full Code Critical Care: Yes Time Spent Managing PTS Care (In Minutes): 30 <Lola Nichols - Last Filed: 06/05/24 16:46> Patient was seen and examined. Events of the last 24 hours have been noted. Spoke with with [facility] regarding patient's clinical picture after evaluating and examining the patient independently. I performed a substantial part of the MDM during this patient's care today. I personally made or approved the documented management plan and acknowledge its risk of complications. I agree with the findings and documentation provided in the [facility]'s notes. Continue with correcting calcium level. PT eval. Placement for SNF vs. hospice. <Moe Patterson - Last Filed: 06/20/24 21:27>
[2024-06-05] MEDS: POTASSIUM CL SA 10 MEQ TAB PO ONE (08:50)
[2024-06-05] MEDS ORDERED: KCL 20 MEQ/100 mL IVPB 20 MEQ/100 ML BAG IV SCH (09:00)
[2024-06-05] MEDS: NA CHLORIDE 0.9% 1,000 ML IV SCH (18:00)
[2024-06-05] MEDS: QUETIAPINE 25 MG TAB PO SCH (21:05)
[2024-06-06] MEDS: METOPROLOL TARTRATE 5 MG/5 ML INJ IV PRN (05:07)
[2024-06-06 06:23] LABS: Absolute Eosinophils 0.1 K/uL (0-0.5); Absolute Lymphocytes (CBC) 0.8 K/uL (0.7-4.9); Absolute Monocytes 0.3 K/uL (0.1-1.3); Absolute Neutrophil 3.9 K/uL (1.8-8.0); Basophils % 0.5 % (0-1.3); Hematocrit 35.5 % (39.6-49.0); Hemoglobin 11.7 g/dL (13.6-17.9); Lymphocytes % 15.6 % (15.3-44.8); MCH 30.8 pg (27.0-35.0); MCV 93.4 fL (80-100); MPV 9.6 fL (7.6-11.3); Monocytes % 6.6 % (3.3-12.3); Neutrophils % 76.3 % (41.7-73.7); Nucleated Red Blood Cells % 0.1 % (0-0); Platelets 228 thou/uL (152-406); Red Cell Distribution Width 14.3 % (12.1-15.2)
--- NOTE | 2024-06-06 07:29 | P.PN ---
Date of Service: 06/06/24 subjective Pured diet, aspiration precaution, head elevated with meals, Total care, restless, sitter at bedside, mitts for plan outlined Review of Systems 10-point ROS is otherwise unremarkable Physical Examination - Vital Signs Reviewed - Physical Exam General: Alert, Oriented x1, Confused, restless HEENT: Atraumatic, PERRLA, Mucous membr. moist/pink, EOMI, Sclerae nonicteric Neck: Supple, 2+ carotid pulse no bruit, No LAD, Without JVD or thyroid abnormality Respiratory: Diminished, unlabored Cardiovascular: Regular rate/rhythm, Normal S1 S2, No murmurs Gastrointestinal: Normal bowel sounds, Soft and benign, Non-distended, No tenderness Musculoskeletal: No clubbing, No swelling, No tenderness Integumentary: No rashes Neurological: Confused, no focal deficit, abnormal gait, Abnormal strength Lymphatics: No axilla or inguinal lymphadenopathy Assessment & Plan - Problems (Diagnosis) Acute metabolic encephalopathy secondary to severe sepsis Current Visit: Yes Status: Acute Acute hypercalcemia Current Visit: Yes Status: Acute thyroid cancer, metastatic lung cancer (metastasis from lung to other site) Current Visit: Yes Status: Acute Multiple bilateral large pulmonary nodules Current Visit: Yes Status: Acute hypertensive urgency Current Visit: Yes Status: Acute - Plan 1. Thickened liquids, aspiration precaution 2. Panculture 3. IV antibiotics, gentle IV fluids, 4. Imaging studies including CT of the brain. MRI if no abnormality 5. Monitor electrolytes; correct calcium; started on pamidronate along with IV fluids with Lasix drip 6. Check thyroid studies as well as cortisol level; check intact PTH along with PTHrP and vitamin D levels 7. Review medications 8. Neurochecks every 4 hours 9. GI DVT prophylaxis 10. As needed antihypertensive, telemetry 11. Pulmonary following Discharge Plan: Home Plan to discharge in: Greater than 2 days - Advance Directives Does patient have a Living Will: No Does patient have a Durable POA for Healthcare: No - Code Status/Comfort Care Code Status Assessed: Yes Code Status: Full Code Critical Care: Yes Time Spent Managing PTS Care (In Minutes): 30 <Lola Nichols - Last Filed: 06/06/24 12:55> Patient was seen and examined. Events of the last 24 hours have been noted. Spoke with with [facility] regarding patient's clinical picture after evaluating and examining the patient independently. I performed a substantial part of the MDM during this patient's care today. I personally made or approved the documented management plan and acknowledge its risk of complications. I agree with the findings and documentation provided in the [facility]'s notes. Continue with monitoring electrolytes; continue with PT; Awaiting rehab place ment <Moe Patterson - Last Filed: 06/20/24 21:35>
[2024-06-06] MEDS: FUROSEMIDE 20 MG/ 2ML VIAL IV SCH (08:49)
[2024-06-06] MEDS: levoFLOXacin 500 MG TAB PO SCH (08:49)
[2024-06-06 09:00] LABS: Albumin 2.7 g/dL (3.4-5.0); Albumin/Globulin Ratio 0.7 (1.1-1.8); Anion Gap 8.6 mEq/L (5.0-15.0); Bilirubin Total 0.4 mg/dL (0.2-1.0); Globulin 3.9 g/dL (2.3-3.5); Magnesium 1.8 mg/dL (1.6-2.4); Protein, Total 6.6 g/dL (6.4-8.2)
[2024-06-06 09:03] LABS: Potassium 2.6 mEq/L (3.5-5.1)
[2024-06-06] MEDS: KCL 20 MEQ/100 mL IVPB 20 MEQ/100 ML BAG IV SCH (09:40)
[2024-06-06 18:59] LABS: Ionized Calcium 6.3 mg/dL (4.7-5.5)
[2024-06-07 04:59] LABS: Absolute Eosinophils 0.1 K/uL (0-0.5); Absolute Lymphocytes (CBC) 1.3 K/uL (0.7-4.9); Absolute Monocytes 0.5 K/uL (0.1-1.3); Absolute Neutrophil 5.9 K/uL (1.8-8.0); Basophils % 0.5 % (0-1.3); Eosinophils % 1.8 % (0-4.4); Hematocrit 33.1 % (39.6-49.0); Hemoglobin 11.2 g/dL (13.6-17.9); Lymphocytes % 16.4 % (15.3-44.8); MCH 31.4 pg (27.0-35.0); MCHC 33.8 g/dL (32.0-36.0); MCV 92.9 fL (80-100); MPV 8.8 fL (7.6-11.3); Monocytes % 6.5 % (3.3-12.3); Neutrophils % 74.8 % (41.7-73.7); Platelets 275 thou/uL (152-406); RBC Red Blood Cell Count 3.57 M/uL (4.33-5.43); Red Cell Distribution Width 14.7 % (12.1-15.2)
[2024-06-07 05:15] LABS: Anion Gap 10.9 mEq/L (5.0-15.0); Magnesium 1.8 mg/dL (1.6-2.4); Potassium 2.9 mEq/L (3.5-5.1)
[2024-06-07] MEDS: D5W 1,000 ML with POTASSIUM CL 20 MEQ IV SCH (07:00)
[2024-06-07] MEDS: KCL 20 MEQ/100 mL IVPB 100 ML IV SCH (08:09)
[2024-06-07] MEDS: D5W 1,000 ML IV SCH (08:10)
--- NOTE | 2024-06-07 09:11 | P.PN ---
Date of Service: 06/06/24 Spoke with patient's . Patient is actually doing better today. Neurologically he is much more awake and alert. He recognizes his the superiorly making much more sense. He still has confusion. But overall the fall from his eyes seems to be lifted. He has decided that he does not want to proceed with any treatment for his cancer. The is contemplating either a care home facility placement or hospice. We will have patient work with physical therapy and make a decision at that time. His long-term prognosis is very poor and he may benefit from hospice care as he is not wanting treatment and he appears to have very advanced cancer. His performance status is very poor and I will think any aggressive treatment would be beneficial for his group home health.
--- NOTE | 2024-06-07 10:24 | P.PN ---
Subjective Date of Service: 06/07/24 Chief Complaint: Altered mental status; metastatic lung cancer; weakness Subjective: No new changes (Pt awakes easily. No complaints. RNs state he gets agitated and tries crawling over side-rails but at present he is calm, makes eye contact, and is without voiced needs/complaints) <Claudia Alvarezy Vahe - Last Filed: 06/07/24 10:46> Date of Service: 06/07/24 <ToñahernanJose Luis dominguez [place] - Last Filed: 06/07/24 14:26> Review of Systems 10-point ROS is otherwise unremarkable General: Weakness, Malaise Eyes: Unremarkable ENT: Unremarkable Respiratory: Unremarkable Cardiovascular: Unremarkable Gastrointestinal: Unremarkable Musculoskeletal: Unremarkable Integumentary: Unremarkable Neurological: Confusion, As per HPI <KimShannan Cotter - Last Filed: 06/07/24 10:46> Physical Examination - Vital Signs Temperature: 99.4 F Blood Pressure: 166/76 Pulse: 79 Respirations: 20 Pulse Ox (%): 90 - Physical Exam General: Alert, In no apparent distress, Cooperative HEENT: Atraumatic, Normocephalic Neck: Supple Respiratory: Normal air movement Cardiovascular: Regular rate/rhythm Capillary refill: <2 Seconds Gastrointestinal: Normal bowel sounds Musculoskeletal: No clubbing Integumentary: No rashes Neurological: Normal affect, Abnormal speech Lymphatics: No axilla or inguinal lymphadenopathy External genitalia: Deferred Rectal: Deferred <Claudia Alvarezy Vahe - Last Filed: 06/07/24 10:46> Assessment And Plan - Plan Assessment & Plan - Problems (Diagnosis) (1) Altered mental status Current Visit: Yes Status: Acute (2) Hypercalcemia Current Visit: Yes Status: Acute (3) Metastatic lung cancer (metastasis from lung to other site) Current Visit: Yes Status: Acute (4) History of thyroid cancer Current Visit: Yes Status: Acute - Plan 1. Gentle hydration, 06/07/2024 patient hyper natremia/hyperchloremic with a p otassium of 2.9, will change IVF to D5W with 20meq KCL 2. Panculture 06/07/2024 no growth 3. IV antibiotics -06/07/2024 Levaquin continues p.o. 4. Imaging studies including CT of the brain. MRI if no abnormality "Homogeneously enhancing anterior parafalcine mass is present on the left this abuts the medardo dao. 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 There is no finding convincing for intracranial metastatic disease seen." 5. Monitor electrolytes 6. Check thyroid studies as well as cortisol level; check intact PTH along with PTHrP and vitamin D levels 06/07/2024 PTH and vitamin D low, calcium elevated likely secondary to malignancy 7. Review medications 8. Neurochecks every 4 hours 9. GI DVT prophylaxis Awaiting SNF placement, requests [facility] Discharge Plan: SNF placement Plan to discharge in: Greater than 2 days - Advance Directives Does patient have a Living Will: No Does patient have a Durable POA for Healthcare: No - Code Status/Comfort Care Code Status Assessed: Yes Code Status: Full Code Critical Care: Yes <Shannan Alvarez - Last Filed: 06/07/24 10:46> - Plan Pt seen and examined. I agree with the note by the PATIENT ACCOUNT LIAISON. Pt is getting iv abx. Will change to levaquin po. Will replete potassium. Pt is confused at bedside. MRI brain shows 2.7 1.2 cm lesion on left brain. It is concerning for meningioma. His want does not want aggressive treatment. Consulted [facility] business development hospice and PT for SNF placement / hospice care. <Jose Luis Alvares - Last Filed: 06/07/24 14:26>
[2024-06-07] MEDS: LORAZEPAM 1 MG TABLET PO ONE (14:18)
[2024-06-07] MEDS: POTASSIUM CL 40 MEQ in NA CHLORIDE 0.9% 500 ML IV SCH (15:00)
[2024-06-07] MEDS: LORazepam 2 MG/ML VIAL IV ONE (17:09)
[2024-06-07] MEDS: HYDRALAZINE HCL 20 MG/ML VIAL IV ONE (17:09)
[2024-06-08 04:40] LABS: Absolute Eosinophils 0.1 K/uL (0-0.5); Absolute Lymphocytes (CBC) 1.5 K/uL (0.7-4.9); Absolute Monocytes 0.6 K/uL (0.1-1.3); Absolute Neutrophil 6.4 K/uL (1.8-8.0); Basophils % 0.4 % (0-1.3); Eosinophils % 1.4 % (0-4.4); Hematocrit 33.4 % (39.6-49.0); Hemoglobin 11.2 g/dL (13.6-17.9); Lymphocytes % 17.2 % (15.3-44.8); MCH 30.9 pg (27.0-35.0); MCHC 33.4 g/dL (32.0-36.0); MCV 92.5 fL (80-100); MPV 8.9 fL (7.6-11.3); Monocytes % 6.9 % (3.3-12.3); Neutrophils % 74.1 % (41.7-73.7); Nucleated Red Blood Cells % 0.1 % (0-0); Platelets 263 thou/uL (152-406); RBC Red Blood Cell Count 3.61 M/uL (4.33-5.43); Red Cell Distribution Width 14.8 % (12.1-15.2)
[2024-06-08 04:54] LABS: Anion Gap 10.2 mEq/L (5.0-15.0); Magnesium 1.7 mg/dL (1.6-2.4); Potassium 3.2 mEq/L (3.5-5.1)
[2024-06-08] MEDS: MAGNESIUM SULFATE 1 gm IVPB 1 GM/100 ML BAG IV ONE (05:18)
[2024-06-08] MEDS: KCL 20 MEQ/100 mL IVPB 20 MEQ/100 ML BAG IV SCH (06:37)
--- NOTE | 2024-06-08 07:43 | P.PN ---
Subjective Date of Service: 06/08/24 Chief Complaint: Altered mental status; metastatic lung cancer; weakness Subjective: Worsening (Significant change from yesterday, abdominal breathing pattern, will respond to voice. Tachypneic and altered) <Shannan Alvarezlen - Last Filed: 06/08/24 07:37> Date of Service: 06/08/24 <Jose Luis Alvares - Last Filed: 06/08/24 21:46> Review of Systems is unable to be obtained General: As per HPI Respiratory: Shortness of Breath <Shannan Alvarez - Last Filed: 06/08/24 07:37> Physical Examination - Vital Signs Temperature: 98.5 F Blood Pressure: 150/70 Pulse: 98 Respirations: 19 Pulse Ox (%): 92 - Physical Exam General: Demented, Mild distress HEENT: Atraumatic, Normocephalic Neck: Supple Respiratory: Other (open mouthed tachypnea with abdominal breathing pattern) Cardiovascular: No edema, Irregular heart rate/rhythm Capillary refill: <2 Seconds Gastrointestinal: Normal bowel sounds Musculoskeletal: No clubbing Integumentary: No rashes Neurological: Abnormal speech, Abnormal strength, Abnormal affect Lymphatics: No axilla or inguinal lymphadenopathy External genitalia: Deferred Rectal: Deferred <Shannan Alvarezlen - Last Filed: 06/08/24 07:37> - Studies Microbiology Data (last 24 hrs): 06/03/24 16:15 Blood - Blood Aerobic Blood Culture - Final No growth in 5 days. 06/03/24 16:15 Blood - Blood Anaerobic Blood Culture - Final No growth in 5 days. 06/03/24 16:10 Blood - Blood Aerobic Blood Culture - Final No growth in 5 days. 06/03/24 16:10 Blood - Blood Anaerobic Blood Culture - Final No growth in 5 days. <Jose Luis Alvares - Last Filed: 06/08/24 21:46> Assessment And Plan - Plan Assessment & Plan - Problems (Diagnosis) (1) Altered mental status Current Visit: Yes Status: Acute (2) Hypercalcemia Current Visit: Yes Status: Acute (3) Metastatic lung cancer (metastasis from lung to other site) Current Visit: Yes Status: Acute (4) History of thyroid cancer Current Visit: Yes Status: Acute - Plan 1. Gentle hydration, 06/07/2024 patient hyper natremia/hyperchloremic with a potassium of 2.9, will change IVF to D5W with 20meq KCL - 06/08/24 potassium improved 2. Panculture 06/07/2024 no growth 3. IV antibiotics -06/07/2024 Levaquin continues p.o. 4. Imaging studies including CT of the brain. MRI if no abnormality "Homogeneously enhancing anterior parafalcine mass is present on the left this abuts the medardo dao. 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 There is no finding convincing for intracranial metastatic disease seen." 5. Monitor electrolytes 6. Check thyroid studies as well as cortisol level; check intact PTH along with PTHrP and vitamin D levels 06/07/2024 PTH and vitamin D low, calcium elevated likely secondary to malignancy 7. Review medications 8. Neurochecks every 4 hours 9. GI DVT prophylaxis definite condition change overnight EKG ABG, BiPap Awaiting SNF placement, requests [facility] Discharge Plan: SNF placement Plan to discharge in: Greater than 2 days - Advance Directives Does patient have a Living Will: No Does patient have a Durable POA for Healthcare: No - Code Status/Comfort Care Code Status Assessed: Yes Code Status: Full Code Critical Care: Yes <Shannan Alvarez - Last Filed: 06/08/24 07:37> - Plan Pt seen and examined. I agree with the note by the STATISTICAL METHODS PROFESSOR. Pt had respiratory distress and we started BIPAP. Hw later became unresponsive and we initiated CPR but his asked the medical team to stop the CPR. Pt today at 0903 <Jose Luis Alvares - Last Filed: 06/08/24 21:46>
[2024-06-08 08:16] VITALS: BP 178/78; TEMP 96.8
[2024-06-08 09:05] VITALS: O2SAT 90
[2024-06-08 09:14] LABS: Arterial Blood Carboxyhemoglob 0.8 % (0-1.5); Blood O2 Saturation 85.1 % (92-98.5)
[2024-06-08 09:15] LABS: Blood Gas THB 12.6 g/dl (12-18)
--- NOTE | 2024-06-08 09:26 | P.DS ---
Admission Date: 06/03/24 Discharge Date: 06/08/24 Comment: time of 9:03 Reason for Admission: Altered mental status; metastatic lung cancer; weakness Consultations: Dr. Dimas contacted post for notification. Brief History of Present Illness: Patient is a 88-year-old gentleman came to the hospital with altered mentation. Patient has gotten really weak and confused. According to the , patient started going downhill a few years ago when he was diagnosed with thyroid cancer. Patient had done well until he became ill earlier this year. His calcium level was significantly elevated. Patient had workup done which revealed metastatic lung cancer. 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 Patient has been following up with local oncologist and is pending further or workup prior to treatment plan. At this time, patient's prognosis is poor. Patient appears to be very debilitated. He is very confused and will try to get his calcium level down with fluids and diuretics. Will also start him on pamidronate. Repeat calcium level in AM. CT scan of the brain pending as well. Hospital Course: Mr. Manley had decided to stop treatment for malignancy. He was confused but alert yesterday and then this morning had a significant change in his breathing pattern. He had an ABG that showed hypoxia and BiPap was started. He arrested and a code blue was called. One dose of epinephrine IV given while contacting his . + return of spontaneous cardiac rhythm obtained. As intubation was beginning, stated on the phone that efforts should stop. Dr. Alvares discussed Mr. Manley's condition and reiterated that he remained apneic. She maintained that she wanted to let Mr. Manley comfortably. He was placed in a comfortable position and blankets reapplied. Monitors remained in place with O2 via N/C with nursing staff at bedside. Mrs. Manley arrived, Chaplain Roberts was at bedside. She was given opportunity for questions and made as comfortable as possible. She phoned a Friend to come to bedside. Assessment with stethoscope negative for cardiopulmonary activity at 0903. <Shannan Alvarez - Last Filed: 06/08/24 09:28> Admission Date: 06/03/24 Discharge Date: 06/08/24 Hospital Course: Pt seen and examined. I agree with the note by the NET WEB DEVELOPER. Pt had hypoxia and we started BIPAP. Lex mantilla was later called when pt became unresponsive. we initiated CPR and talked to his who requested to discontinue CPR. We stopped CPR and pt at 902. Pt will be transferred to the [facility]. <Jose Luis Alvares - Last Filed: 06/08/24 10:20> Disposition: Discharge Condition: Vital Signs/Physical Exam: Temp Pulse Resp BP Pulse Ox 96.8 F 94 H 36 H 178/78 H 90 L 06/08/24 08:00 06/08/24 08:00 06/08/24 08:00 06/08/24 08:00 06/08/24 08:00 General: Unresponsive HEENT: Atraumatic, Normocephalic Respiratory: Other (no cardiopulmonary activity) Capillary refill: None Gastrointestinal: No ascites Integumentary: No significant lesion External genitalia: Deferred Rectal: Deferred Laboratory Data at Discharge: WBC 8.70 thou/uL (4.3-10.9) 06/08/24 03:59 Hgb 11.2 g/dL (13.6-17.9) L 06/08/24 03:59 Hct 33.4 % (39.6-49.0) L 06/08/24 03:59 Plt Count 263 thou/uL (152-406) 06/08/24 03:59 PT 14.1 SECONDS (9.4-12.5) H 06/04/24 06:20 INR 1.27 06/04/24 06:20 APTT 30.3 SECONDS (24.3-36.9) 06/04/24 06:20 Sodium 148 mEq/L (136-145) H 06/08/24 03:59 Potassium 3.2 mEq/L (3.5-5.1) L 06/08/24 03:59 BUN 28 mg/dL (7-18) H 06/08/24 03:59 Creatinine 1.26 mg/dL (0.70-1.30) 06/08/24 03:59 Glucose 112 mg/dL (74-106) H 06/08/24 03:59 Magnesium 1.7 mg/dL (1.6-2.4) 06/08/24 03:59 Total Bilirubin 0.4 mg/dL (0.2-1.0) 06/06/24 08:13 AST 28 U/L (15-37) 06/06/24 08:13 ALT 19 U/L (16-61) 06/06/24 08:13 Alkaline Phosphatase 37 U/L (45-117) L 06/06/24 08:13 Triglycerides 154 mg/dL (<150) H 06/04/24 06:20 Cholesterol 141 mg/dL (<200) 06/04/24 06:20 HDL Cholesterol 54 mg/dL (40-60) 06/04/24 06:20 Cholesterol/HDL Ratio 2.61 06/04/24 06:20 <Alvarez,Shannan Vahe - Last Filed: 06/08/24 09:28> Vital Signs/Physical Exam: Temp Pulse Resp BP Pulse Ox 96.8 F 94 H 36 H 178/78 H 90 L 06/08/24 08:00 06/08/24 08:00 06/08/24 08:00 06/08/24 08:00 06/08/24 08:00 Laboratory Data at Discharge: WBC 8.70 thou/uL (4.3-10.9) 06/08/24 03:59 Hgb 11.2 g/dL (13.6-17.9) L 06/08/24 03:59 Hct 33.4 % (39.6-49.0) L 06/08/24 03:59 Plt Count 263 thou/uL (152-406) 06/08/24 03:59 PT 14.1 SECONDS (9.4-12.5) H 06/04/24 06:20 INR 1.27 06/04/24 06:20 APTT 30.3 SECONDS (24.3-36.9) 06/04/24 06:20 Sodium 148 mEq/L (136-145) H 06/08/24 03:59 Potassium 3.2 mEq/L (3.5-5.1) L 06/08/24 03:59 BUN 28 mg/dL (7-18) H 06/08/24 03:59 Creatinine 1.26 mg/dL (0.70-1.30) 06/08/24 03:59 Glucose 112 mg/dL (74-106) H 06/08/24 03:59 Magnesium 1.7 mg/dL (1.6-2.4) 06/08/24 03:59 Total Bilirubin 0.4 mg/dL (0.2-1.0) 06/06/24 08:13 AST 28 U/L (15-37) 06/06/24 08:13 ALT 19 U/L (16-61) 06/06/24 08:13 Alkaline Phosphatase 37 U/L (45-117) L 06/06/24 08:13 Triglycerides 154 mg/dL (<150) H 06/04/24 06:20 Cholesterol 141 mg/dL (<200) 06/04/24 06:20 HDL Cholesterol 54 mg/dL (40-60) 06/04/24 06:20 Cholesterol/HDL Ratio 2.61 06/04/24 06:20 <Jose Luis Alvares - Last Filed: 06/08/24 10:20> <Shannan Alvarez - Last Filed: 06/08/24 09:28> <Jose Luis Alvares - Last Filed: 06/08/24 10:20> Followup: Marito Dimas MD [Primary Care Provider] -
--- NOTE | 2024-06-08 10:24 | EKG ---
Test Date: 2024-06-08 Test Time: 06:56:34 Saddle Mechanic: ISAMAR MEASUREMENT RESULTS: Intervals: Rate: 82 SD: 130 QRSD: 94 QT: 366 QTc: 427 [place]: P: 66 SD: 130 QRS: 52 T: 27 INTERPRETIVE STATEMENTS: Normal sinus rhythm with sinus arrhythmia Possible Left atrial enlargement Left ventricular hypertrophy Nonspecific ST abnormality Abnormal ECG Compared to ECG 06/03/2024 16:12:24 Left ventricular hypertrophy now present ST (T wave) deviation still present Electronically Signed On 06-08-24 10:23:20 CDT by Moshe Unger
[2024-06-09 14:12] LABS: 1,25 Dihydroxy Vitamin D3 93 pg/mL; Vitamin D 1,25-Dihydroxy Total 93 pg/mL (18-72); Vitamin D,1,25-OH2, D2 <8 pg/mL
--- NOTE | 2024-06-10 12:14 | EKG ---
Test Date: 2024-06-08 Test Time: 06:57:23 Slip Cover Operator: ISAMAR MEASUREMENT RESULTS: Intervals: Rate: 71 ID: [id number] QRSD: 92 QT: 384 QTc: 417 [place]: P: 66 ID: [id number] QRS: 55 T: 47 INTERPRETIVE STATEMENTS: Normal sinus rhythm with sinus arrhythmia Possible Left atrial enlargement Left ventricular hypertrophy Nonspecific ST abnormality Abnormal ECG Compared to ECG 06/08/2024 06:56:34 No significant changes Electronically Signed On 06-10-24 12:11:54 CDT by Moshe Unger
== END 2024-06-08 09:03 | disposition expired | DRG 871 ==
LOC: ER 14:57 → 3RD-ICU 17:17 → 2ND 06-04 16:01
PROVIDERS: ADMIT Hospitalist; ATTEND Hospitalist
PROC: 4A033R1 Measurement of Arterial Saturation, Peripheral, Percutaneous Approach (ICD-10-PCS; principal; 2024-06-08)
PROC: 5A09357 Assistance with Respiratory Ventilation, Less than 24 Consecutive Hours, Continuous Positive Airway Pressure (ICD-10-PCS; 2024-06-08)
PROC: 5A12012 Performance of Cardiac Output, Single, Manual (ICD-10-PCS; 2024-06-08)
DX: A41.9 Sepsis, unspecified organism (principal); G93.41 Metabolic encephalopathy; J96.01 Acute respiratory failure with hypoxia; J96.02 Acute respiratory failure with hypercapnia; E87.0 Hyperosmolality and hypernatremia; N17.9 Acute kidney failure, unspecified; C34.90 Malignant neoplasm of unspecified part of unspecified bronchus or lung; F03.911 Unspecified dementia, unspecified severity, with agitation; E83.52 Hypercalcemia; E87.6 Hypokalemia; E86.9 Volume depletion, unspecified; I16.0 Hypertensive urgency; D64.9 Anemia, unspecified; R65.20 Severe sepsis without septic shock; R91.1 Solitary pulmonary nodule; Z78.1 Physical restraint status; Z88.2 Allergy status to sulfonamides; Z11.52 Encounter for screening for COVID-19; Z85.850 Personal history of malignant neoplasm of thyroid
CPT/HCPCS: 36415; 36600; 70450; 70553; 71045; 80048; 80053; 80061; 82306; 82330; 82652; 82805; 83519; 83605; 83735; 83880; 83970; 84132; 84484; 85025; 85610; 85730; 87040; 87804; 87811; 92610; 92950; 93005; 94760; 97161; 97530; 99285; A9577; J0360; J0696; J1100; J1630; J1650; J1940; J1953; J2430; J3475; J3480; J7030; J7040; J7050